=== PATIENT | female | born 1970 | race Caucasian/White ===

== ENCOUNTER 2018-11-24 07:34 | Emergency (ER) | payer BC ==
[~2018-11-24] VITALS: Ht 157.5 cm; Wt 90.1 kg
[2018-11-24] MEDS ORDERED: FAMOTIDINE 20MG TABLET PO ONE (09:00)
[2018-11-24] MEDS ORDERED: PREDNISONE 20MG TABLET PO ONE (09:00)
[2018-11-24 10:04] VITALS: BP 123/58
== END 2018-11-24 10:06 | disposition home or self-care (01) ==
LOC: ER 07:34
DX: L50.9 Urticaria, unspecified (principal); R03.0 Elevated blood-pressure reading, without diagnosis of hypertension
CPT/HCPCS: 81025; 99283; J7512